=== PATIENT | male | born 1985 | race Caucasian/White ===

== ENCOUNTER 2016-10-26 08:17 | Outpatient (CLI) | payer BC ==
[~2016-10-26] VITALS: Ht 180.3 cm; Wt 108.6 kg
[2016-10-26] VITALS (9 sets, daily range): BP systolic 121–162; BP diastolic 75–92; PULSE 64–76; TEMP 98.1–98.2
[~2016-10-26 08:17] MED LIST: NO HOME MEDICATIONS
[2016-10-26] MEDS ORDERED: TOPROL XL 25MG25 MG PO (08:30)
== END 2016-10-26 10:59 | disposition home or self-care (01) ==
LOC: COL.RAD 08:17
DX: K75.81 Nonalcoholic steatohepatitis (NASH) (principal); I10 Essential (primary) hypertension
CPT/HCPCS: 25757